=== PATIENT | male | born 1985 | race Caucasian/White ===

== ENCOUNTER 2023-07-05 13:31 | Emergency (ER) | payer OTHER ==
--- NOTE | 2023-07-05 14:06 | ED ---
Upper Extremity HPI - General Source: patient, RN notes reviewed Mode of arrival: ambulatory Limitations: no limitations <Le Pringle - Last Filed: 07/05/23 14:05> - General Source: patient, RN notes reviewed Mode of arrival: ambulatory Limitations: no limitations <Marion Hagen - Last Filed: 07/05/23 16:03> - General Chief Complaint: Extremity Injury, Upper Stated Complaint: Injury to R hand Time Seen by Provider: 07/05/23 13:50 - History of Present Illness Initial Comments: Quick Note- this is a 37-year-old male presents emergency department chief complaint of pain to his right fifth digit. Patient was playing daughter yesterday when he sprained his finger. Denies any wrist pain. (Le Pringle) 37-year-old male presented to the ER with chief complaint of right fifth digit injury. Patient reports he was playing dodgeball yesterday and injured his finger. He is unsure exact mechanism of injury. He reports decreased range of motion of PIP joint. Denies any paresthesias. He states he is taking ibuprofen for pain relief. He denies any other injuries. (Marion Hagen) - Related Data Allergies Allergy/AdvReac Type Severity Reaction Status Date / Time No Known Allergies Allergy Verified 07/05/23 13:37 Review of Systems ROS Other: All systems not noted in ROS Statement are negative. <Le Pringle - Last Filed: 07/05/23 14:05> ROS Other: All systems not noted in ROS Statement are negative. <Marion Hagen - Last Filed: 07/05/23 16:03> ROS Statement: Those systems with pertinent positive or pertinent negative responses have been documented in the HPI. Past Medical History Past Medical History: No Reported History History of Any Multi-Drug Resistant Organisms: MRSA Past Surgical History: No Surgical Hx Reported Past Psychological History: ADD/ADHD, Anxiety, Depression Smoking Status: Current every day smoker Past Alcohol Use History: None Reported Past Drug Use History: Methamphetamine <Le Pringle - Last Filed: 07/05/23 14:05> General Exam Limitations: no limitations <Le Pringle - Last Filed: 07/05/23 14:05> General appearance: alert, in no apparent distress Respiratory exam: Present: normal lung sounds bilaterally. Absent: respiratory distress, wheezes, rales, rhonchi, stridor Cardiovascular Exam: Present: regular rate, normal rhythm, normal heart sounds. Absent: systolic murmur, diastolic murmur, rubs, gallop, clicks Extremities exam: Present: tenderness (Right fifth digit PIP joint. Limited range of motion. Edema and mild bruising to joint. No anatomical snuffbox tenderness. 2+ right radial pulse. Sensation intact) Neurological exam: Present: alert, oriented X3, CN II-XII intact Skin exam: Present: warm, dry, intact, normal color. Absent: rash <Marion Hagen - Last Filed: 07/05/23 16:03> - General Exam Comments Initial Comments: Visual Physical Exam Vital signs reviewed General: Well-appearing, nontoxic, no acute distress. Head: Normocephalic, atraumatic Eyes: PERRLA, EOMI ENT: Airway patent Chest: Nonlabored breathing Skin: No visual rash, normal skin tone Neuro: Alert and oriented 3 Musculoskeletal: No gross abnormalities (Le Pringle) Course Vital Signs 07/05/23 13:34 Temperature 98.3 F Pulse Rate 102 H Respiratory 18 Rate Blood Pressure 138/71 O2 Sat by Pulse 97 Oximetry Medical Decision Making <Le Pringle - Last Filed: 07/05/23 14:05> - Radiology Data Radiology results: report reviewed, image reviewed <Marion Hagen - Last Filed: 07/05/23 16:03> - Medical Decision Making I completed the quick note portion of this chart signed Le Pringle PA-C (Le Pringle) Was pt. sent in by a medical professional or institution ([facility], [facility], urgent care, hospital, or penitentiary...) When possible be specific @ -Patient sent by [facility] for evaluation of right fifth digit injury. Did you speak to anyone other than the patient for history (EMS, parent, family, police, friend...)? What history was obtained from this source @ -No Did you review nursing and triage notes (agree or disagree)? Why? @ -I reviewed and agree with nursing and triage notes Were old charts reviewed (outside hosp., previous admission, EMS record, old EKG, old radiological studies, urgent care reports/EKG's, penitentiary records)? Report findings @ -No old charts were reviewed Differential Diagnosis (chest pain, altered mental status, abdominal pain women, abdominal pain men, vaginal bleeding, weakness, fever, dyspnea, syncope, headache, dizziness, GI bleed, back pain, seizure, CVA, palpatations, mental health, musculoskeletal)? @ -Differential Musculoskeletal: Muscular strain, contusion, ligament sprain, fracture, arthritis, septic arthritis, bursitis, cellulitis, muscle spasm, nerve compression, DVT, arterial occlusion, herpes zoster, electrolyte abnormality, tumor.... This is not meant to be in all inclusive list EKG interpreted by me (3pts min.). @ -None X-rays interpreted by me (1pt min.). @ -Right fifth digit x-ray interpreted by me negative for acute process. CT interpreted by me (1pt min.). @ -None done U/S interpreted by me (1pt. min.). @ -None done What testing was considered but not performed or refused? (CT, X-rays, U/S, labs)? Why? @ -None What meds were considered but not given or refused? Why? @ -Analgesic medication refused. Did you discuss the management of the patient with other professionals (professionals i.e. , PA, [facility], lab, RT, psych nurse, social science professor, data center solutions architect, teacher, collections officer, family independence case manager)? Give summary @ -No Was smoking cessation discussed for >3mins.? @ -No Was critical care preformed (if so, how long)? @ -No Were there social determinants of health that impacted care today? How? (Homelessness, low income, unemployed, alcoholism, drug addiction, transportation, low edu. Level, literacy, decrease access to med. care, skilled nursing, rehab)? @ -No Was there de-escalation of care discussed even if they declined (Discuss DNR or withdrawal of care, Hospice)? DNR status @ -No What co-morbidities impacted this encounter? (DM, HTN, Smoking, COPD, CAD, Cancer, CVA, ARF, Chemo, Hep., AIDS, mental health diagnosis, sleep apnea, morbid obesity)? @ -None Was patient admitted / discharged? Hospital course, mention meds given and route, prescriptions, significant lab abnormalities, going to OR and other pertinent info. @ -Discharge. 37-year-old male presenting to the ER with chief complaint of right fifth finger injury. History and physical exam completed. Vitals stable. Patient in no signs acute distress and nontoxic-appearing. Edema and tenderness to right fifth digit PIP joint. Patient has limited range of motion of PIP joint. No anatomical snuffbox tenderness. Right upper extremity neurovascular intact. X-rays obtained negative for acute process. Patient refused analgesic medication and states he recently took ibuprofen prior to arrival. Patient placed in a finger splint. Advised follow-up with orthopedics, referral given. Return parameters discussed. Patient discharged stable condition. Patient verbally expressed understanding and agreement with care plan. Case discussed with ED attending, Dr. Weeks. Undiagnosed new problem with uncertain prognosis? @ -No Drug Therapy requiring intensive monitoring for toxicity (Heparin, Nitro, Insulin, Cardizem)? @ -No Were any procedures done? @ -No Diagnosis/symptom? @ -Finger sprain Acute, or Chronic, or Acute on Chronic? @ -Acute Uncomplicated (without systemic symptoms) or Complicated (systemic symptoms)? @ -Uncomplicated Side effects of treatment? @ -No Exacerbation, Progression, or Severe Exacerbation? @ -No Poses a threat to life or bodily function? How? (Chest pain, USA, VT, pneumonia, PE, COPD, DKA, ARF, appy, cholecystitis, CVA, Diverticulitis, Homicidal, Suicidal, threat to staff... and all critical care pts) @ -No (Marion Hagen) Disposition <Le Pringle - Last Filed: 07/05/23 14:05> Is patient prescribed a controlled substance at d/c from ED?: No Time of Disposition: 15:43 <Marion Hagen - Last Filed: 07/05/23 16:03> Clinical Impression: Finger sprain Disposition: HOME SELF-CARE Condition: Stable Instructions (If sedation given, give patient instructions): Hand Sprain (ED) Additional Instructions: Please follow-up with orthopedics if symptoms persist. Return to ER for any new or worsening concerns. Referrals: None,Stated [Primary Care Provider] - 1-2 days Cleve Flowers DO [Doctor of Osteopathic Medicine] - 1-2 days Forms: Area PCPs
--- NOTE | 2023-07-05 15:02 | XR ---
EXAMINATION TYPE: XR finger RT DATE OF EXAM: 07/05/2023 2:36 PM CLINICAL INDICATION:Male, 37 years old with history of injury, pain; COMPARISON: None TECHNIQUE: XR finger RT Frontal, lateral and oblique views were obtained. FINDINGS: Mild soft tissue swelling of the fifth digit without evidence of fracture. No dislocation i dentified. IMPRESSION: Mild soft tissue swelling without acute osseous pathology.
[2023-07-05 17:39] VITALS: BP 140/79; PULSE 98; RESP 16; TEMP 98.1
== END 2023-07-05 17:15 | disposition home or self-care (01) ==
LOC: EC 13:31
DX: S63.616A Unspecified sprain of right little finger, initial encounter (principal); F17.200 Nicotine dependence, unspecified, uncomplicated; X58.XXXA Exposure to other specified factors, initial encounter; Y93.6A Activity, physical games generally associated with school recess, summer camp and children
CPT/HCPCS: 99283